=== PATIENT | male | born 1935 | race Two or more races ===

== ENCOUNTER → 2021-07-21 | Outpatient (CLI) | payer MEDICARE ==
[2021-07-21 17:33] LABS: Urine Bacteria FEW /hpf (None Seen); Urine Blood 1+ /uL (Negative); Urine Mucus FEW (None Seen); Urine Specific Gravity 1.023 (1.001-1.035); Urine WBC 8 /hpf (0 - 3)
== END | disposition home or self-care (01) ==
LOC: LAB 15:28
PROVIDERS: ATTEND Urology
DX: R31.9 Hematuria, unspecified (principal)
CPT/HCPCS: 81001; 87086

== ENCOUNTER 2021-08-03 10:11 | Inpatient (IN) | payer MEDICARE, OTHER ==
[~2021-08-03] VITALS: Ht 182.9 cm; Wt 97.4 kg
[2021-08-03 12:15] LABS: Basophils # (auto) 0 10 ^3/uL (0-0.2); Basophils % (auto) 0.4 % (0.0-2.0); Eosinophils # (auto) 0 10 ^3/uL (0-0.8); Eosinophils % (auto) 0.8 % (0.0-7.0); Hematocrit 31.1 % (41.0-53.0); Hemoglobin 10.1 g/dL (13.5-17.5); Lymphocytes # (auto) 0.7 10 ^3/uL (0.4-5.4); Lymphocytes % (auto) 17.5 % (10.0-50.0); Mean Corpuscular Hemoglobin 28.9 pg (28.0-32.0); Mean Corpuscular Hgb Conc. 32.6 g/dL (32.0-36.0); Mean Corpuscular Volume 88.8 fL (80.0-100.0); Monocytes # (auto) 0.3 10 ^3/uL (0-1.3); Monocytes % (auto) 7.8 % (0.0-12.0); Neutrophils # (auto) 3.1 10 ^3/uL (1.6-8.6); Neutrophils % (auto) 73.5 % (37.0-80.0); Nucleated Red Blood Cells % 0.1 %; Red Cell Distribution Width 19.5 % (11.8-14.3); White Blood Cell 4.2 10^3/uL (4.4-10.8)
[2021-08-03 12:27] LABS: INR 1.26 (0.9-1.15); Partial Thromboplastin Time 30.5 sec (23.6-33.0)
[2021-08-03 12:40] LABS: Albumin 2.9 g/dL (3.4-5.0); BUN/Creatinine Ratio 18.2; Calcium 8.9 mg/dL (8.5-10.1); Potassium 4.4 mmol/L (3.5-5.1)
[2021-08-03 12:54] LABS: Total Protein 6.6 g/dL (6.4-8.2)
[2021-08-03] MEDS ORDERED: ONDANSETRON HCL 4 MG/2 ML VIAL IV PRN (21:30)
[2021-08-03] MEDS ORDERED: ACETAMINOPHEN 325 MG TAB PO PRN (21:30)
[2021-08-03] MEDS ORDERED: DOCUSATE SOD 100 MG CAP PO PRN (21:30)
[2021-08-03] MEDS ORDERED: MORPHINE SULFATE INJECTION 2 MG/ML SYRG IV PRN (22:00)
[2021-08-03] MEDS ORDERED: NITROGLYCERIN 0.4 MG SL TAB SL PRN (22:00)
[2021-08-03 22:37] LABS: Urine Bacteria NONE SEEN /hpf (None Seen); Urine Blood TRACE /uL (Negative); Urine Hyaline Cast FEW /lpf (0 - 2); Urine Mucus FEW (None Seen); Urine Specific Gravity 1.023 (1.001-1.035); Urine WBC 1 /hpf (0 - 3)
[2021-08-04 04:59] LABS: Albumin 2.5 g/dL (3.4-5.0); Anion Gap 9 (5-15); BUN/Creatinine Ratio 21.5; Blood Urea Nitrogen 17 mg/dL (7-18); Calcium 8.1 mg/dL (8.5-10.1); Carbon Dioxide 24 mmol/L (21-32); Chloride 107 mmol/L (98-107); GFR African American 120 mL/min; GFR Non-African American 99 mL/min; Glucose 94 mg/dL (74-106); Potassium 4.1 mmol/L (3.5-5.1); Sodium 140 mmol/L (136-145)
[2021-08-04 05:02] LABS: Alanine Aminotransferase 14 U/L (16-61); Alkaline Phosphatase 87 U/L (45-117); Aspartate Aminotransferase 17 U/L (15-37); Bilirubin, Total 0.7 mg/dL (0.2-1.0); Total Protein 6.1 g/dL (6.4-8.2)
[2021-08-04] MEDS ORDERED: OLANZapine 5 MG TAB PO ONE (08:30)
[2021-08-04] MEDS: ZINC SULFATE 220mg CAP or TAB PO SCH (10:00)
[2021-08-04] MEDS ORDERED: FAMOTIDINE (10MG/ML) 2ML VL IV SCH (10:00)
[2021-08-04] MEDS: MULTIPLE VITAMIN TAB PO SCH (10:00)
[2021-08-04] MEDS ORDERED: RANO500T PO (10:39)
[2021-08-04] MEDS ORDERED: METO-158 PO (10:39)
[2021-08-04] MEDS ORDERED: NITR50CA24 PO (10:39)
[2021-08-04] MEDS ORDERED: POM (10:39)
[2021-08-04] MEDS ORDERED: ATOR10TA52 PO (10:39)
[2021-08-04] MEDS ORDERED: AMLO-489 PO (10:39)
[2021-08-04] MEDS ORDERED: LISI40TA11 PO (10:39)
[2021-08-04] MEDS ORDERED: METF-370 PO (10:39)
[2021-08-04 11:49] VITALS: BP 156/88
[2021-08-04] MEDS: SODIUM CHLORIDE 0.9% 1,000 ML IV SCH ×2 (12:13→13:13)
[2021-08-04] MEDS: ASCORBIC ACID 500 MG TAB PO SCH ×2 (12:13→21:06)
[2021-08-04] MEDS: HYDROcodone-ACET 5/325MG TAB PO PRN ×2 (12:14→21:07)
[2021-08-04 15:11] LABS: Basophils # (auto) 0 10 ^3/uL (0-0.2); Basophils % (auto) 0.3 % (0.0-2.0); Eosinophils # (auto) 0 10 ^3/uL (0-0.8); Hematocrit 33.8 % (41.0-53.0); Hemoglobin 11.1 g/dL (13.5-17.5); Lymphocytes # (auto) 0.9 10 ^3/uL (0.4-5.4); Lymphocytes % (auto) 20.4 % (10.0-50.0); Mean Corpuscular Hemoglobin 29.1 pg (28.0-32.0); Mean Corpuscular Hgb Conc. 32.7 g/dL (32.0-36.0); Mean Corpuscular Volume 88.8 fL (80.0-100.0); Monocytes # (auto) 0.4 10 ^3/uL (0-1.3); Monocytes % (auto) 7.8 % (0.0-12.0); Neutrophils # (auto) 3.3 10 ^3/uL (1.6-8.6); Neutrophils % (auto) 70.5 % (37.0-80.0); Nucleated Red Blood Cells % 0.1 %; Red Cell Distribution Width 19.6 % (11.8-14.3); White Blood Cell 4.6 10^3/uL (4.4-10.8)
[2021-08-04 17:05] VITALS: BP 174/92
[2021-08-04] MEDS: TAMSULOSIN HYDROCHLORIDE 0.4 MG CAP PO SCH (17:36)
[2021-08-04 22:00] VITALS: BP 143/77
[2021-08-05 04:46] VITALS: BP 169/80
[2021-08-05] MEDS: MULTIPLE VITAMIN TAB PO SCH (08:59)
[2021-08-05] MEDS: ZINC SULFATE 220mg CAP or TAB PO SCH (08:59)
[2021-08-05] MEDS: ASCORBIC ACID 500 MG TAB PO SCH ×2 (08:59→23:07)
[2021-08-05 09:00] VITALS: BP 161/113
[2021-08-05] MEDS ORDERED: ZOLPIDEM TARTRATE 5 MG TAB PO PRN (09:15)
[2021-08-05] MEDS: GABAPENTIN 400 MG CAP PO SCH ×2 (11:56→23:06)
[2021-08-05 12:59] VITALS: BP 120/80
[2021-08-05] MEDS: REQUIP PO SCH ×2 (13:57→23:06)
[2021-08-05] MEDS: TAMSULOSIN HYDROCHLORIDE 0.4 MG CAP PO SCH (18:20)
[2021-08-05] MEDS: SODIUM CHLORIDE 0.9% 1,000 ML IV SCH (18:20)
[2021-08-05] MEDS: HYDROcodone-ACET 5/325MG TAB PO PRN (18:46)
[2021-08-05 20:00] VITALS: BP 149/101
[2021-08-05 22:00] VITALS: BP 122/79
[2021-08-06] MEDS: SODIUM CHLORIDE 0.9% 1,000 ML IV SCH ×3 (02:39→16:10)
[2021-08-06 05:00] VITALS: BP 164/96
[2021-08-06 08:00] VITALS: BP 151/61
[2021-08-06 08:30] VITALS: BP 150/61
[2021-08-06] MEDS: REQUIP PO SCH ×2 (10:00→21:56)
[2021-08-06] MEDS: GABAPENTIN 400 MG CAP PO SCH ×2 (10:48→21:57)
[2021-08-06] MEDS: ASCORBIC ACID 500 MG TAB PO SCH ×2 (10:49→21:58)
[2021-08-06] MEDS: ZINC SULFATE 220mg CAP or TAB PO SCH (11:23)
[2021-08-06] MEDS: MULTIPLE VITAMIN TAB PO SCH (11:24)
[2021-08-06 16:58] VITALS: BP 169/94
[2021-08-06] MEDS: TAMSULOSIN HYDROCHLORIDE 0.4 MG CAP PO SCH (17:53)
[2021-08-06 20:00] VITALS: BP 159/82
[2021-08-06] MEDS: ATORVASTATIN 20 MG TAB PO SCH (21:57)
[2021-08-06] MEDS: RANOLAZINE ER 500 MG TAB PO SCH (21:58)
[2021-08-06] MEDS: amLODIPine BESYLATE 5 MG TAB PO SCH (22:12)
[2021-08-07] MEDS: SODIUM CHLORIDE 0.9% 1,000 ML IV SCH ×4 (06:19→18:00)
[2021-08-07 08:00] VITALS: BP 160/62
[2021-08-07 09:00] VITALS: BP 160/91
[2021-08-07] MEDS: GABAPENTIN 400 MG CAP PO SCH ×2 (10:07→21:51)
[2021-08-07] MEDS: ASCORBIC ACID 500 MG TAB PO SCH ×2 (10:08→21:52)
[2021-08-07] MEDS: RANOLAZINE ER 500 MG TAB PO SCH ×2 (10:08→21:52)
[2021-08-07] MEDS: LISINOPRIL 20 MG TAB PO SCH (10:09)
[2021-08-07] MEDS: ZINC SULFATE 220mg CAP or TAB PO SCH (10:10)
[2021-08-07] MEDS: amLODIPine BESYLATE 5 MG TAB PO SCH ×2 (10:10→21:53)
[2021-08-07] MEDS: METOPROLOL TARTRATE 50 MG TAB PO SCH (10:13)
[2021-08-07] MEDS: REQUIP PO SCH ×2 (10:17→21:53)
[2021-08-07] MEDS: MULTIPLE VITAMIN TAB PO SCH (11:05)
[2021-08-07 17:13] VITALS: BP 142/98
[2021-08-07] MEDS ORDERED: CIPROFLOXACIN 400MG/200ML 200 ML IV ONE (17:43)
[2021-08-07] MEDS: TAMSULOSIN HYDROCHLORIDE 0.4 MG CAP PO SCH (18:00)
[2021-08-07] MEDS ORDERED: NALOXONE HCL 0.4 MG/ML VIAL ONE (19:40)
[2021-08-07] MEDS ORDERED: fentaNYL CITRATE 100 MCG/2 ML VL IV PRN (20:15)
[2021-08-07] MEDS ORDERED: ONDANSETRON HCL 4 MG/2 ML VIAL IV PRN (20:15)
[2021-08-07] MEDS ORDERED: NALOXONE HCL 0.4 MG/ML VIAL IV PRN (20:15)
[2021-08-07] MEDS ORDERED: HYDROmorphone HCL 2 MG/ML VL IV PRN ×2 (20:15)
[2021-08-07 21:35] VITALS: BP 140/95
[2021-08-07] MEDS: ATORVASTATIN 20 MG TAB PO SCH (21:51)
[2021-08-07 22:00] VITALS: BP 140/95
[2021-08-08] MEDS ORDERED: HALOPERIDOL LACTATE 5 MG/ML INJ VIAL IM PRN (00:45)
[2021-08-08] MEDS ORDERED: HALOPERIDOL LACTATE 5 MG/ML INJ VIAL ONE (00:49)
[2021-08-08 03:58] VITALS: BP 140/75
[2021-08-08 05:16] VITALS: BP 113/73
[2021-08-08] MEDS: SODIUM CHLORIDE 0.9% 1,000 ML IV SCH ×2 (09:50→10:00)
[2021-08-08] MEDS ORDERED: BELLADONNA ALKAL/OPIUM (16.2/30MG) RECT SUPP PR SCH (10:00)
[2021-08-08] MEDS: REQUIP PO SCH (10:26)
[2021-08-08] MEDS: ZINC SULFATE 220mg CAP or TAB PO SCH (10:27)
[2021-08-08] MEDS: RANOLAZINE ER 500 MG TAB PO SCH (10:27)
[2021-08-08] MEDS: MULTIPLE VITAMIN TAB PO SCH (10:27)
[2021-08-08] MEDS: GABAPENTIN 400 MG CAP PO SCH (10:27)
[2021-08-08] MEDS: ASCORBIC ACID 500 MG TAB PO SCH (10:27)
[2021-08-08] MEDS: amLODIPine BESYLATE 5 MG TAB PO SCH (10:29)
[2021-08-08] MEDS: LISINOPRIL 20 MG TAB PO SCH (10:31)
[2021-08-08] MEDS: METOPROLOL TARTRATE 50 MG TAB PO SCH (10:31)
== END 2021-08-08 17:39 | disposition home or self-care (01) | DRG 713 ==
LOC: ER 10:11 → OVERFLOW 21:50 → WEST WING 08-04 09:50 → CENTRAL 08-04 16:58
PROVIDERS: ADMIT Nurse Practitioner Family; ATTEND Family Medicine
PROC: 0VT08ZZ Resection of Prostate, Via Natural or Artificial Opening Endoscopic (ICD-10-PCS; principal; 2021-08-07 17:54)
DX: N40.1 Benign prostatic hyperplasia with lower urinary tract symptoms (principal); E44.0 Moderate protein-calorie malnutrition; I50.22 Chronic systolic (congestive) heart failure; N13.8 Other obstructive and reflux uropathy; N39.0 Urinary tract infection, site not specified; F03.90 Unspecified dementia, unspecified severity, without behavioral disturbance, psychotic disturbance, mood disturbance, and anxiety; I11.0 Hypertensive heart disease with heart failure; E88.09 Other disorders of plasma-protein metabolism, not elsewhere classified; I48.0 Paroxysmal atrial fibrillation; K43.9 Ventral hernia without obstruction or gangrene; N20.0 Calculus of kidney; R31.0 Gross hematuria; E78.5 Hyperlipidemia, unspecified; E11.9 Type 2 diabetes mellitus without complications; N41.9 Inflammatory disease of prostate, unspecified; J44.9 Chronic obstructive pulmonary disease, unspecified; Z20.822 Contact with and (suspected) exposure to COVID-19; Z68.29 Body mass index [BMI] 29.0-29.9, adult; Z79.84 Long term (current) use of oral hypoglycemic drugs; Z82.49 Family history of ischemic heart disease and other diseases of the circulatory system; Z90.49 Acquired absence of other specified parts of digestive tract
CPT/HCPCS: 36415; 71045; 74176; 80053; 81001; 85025; 85610; 85730; 86850; 86900; 86901; 87426; 93005; 93306; G0378